=== PATIENT | female | born 1990 | race Caucasian/White ===

== ENCOUNTER 2017-08-20 19:52 | Emergency (ER) | payer OTHER ==
[~2017-08-20] VITALS: Ht 160 cm; Wt 90.6 kg
[~2017-08-20 19:52] MED LIST: JUNEL FE 1/21 TABLET PO; MOTRIN800 MG PO
[2017-08-20 20:20] LABS: MCH 31.3 PG (29.0-34.0); MCHC 34.5 G/DL (30.0-36.0); MCV 90.7 FL (83-99); MEAN PLAT.VOLUME 9.5 uM^3 (9.5-12.4); PLATELET COUNT 195 K/uL (156-360); RBC DIS.WIDTH-CV 12.6 % (11.8-14.6); RBC DIS.WIDTH-SD 41.1 % (39-53); RED BLOOD COUNT 4.19 M/uL (3.80-5.20); WHITE BLOOD COUNT 8.7 K/uL (4.1-10.2)
[2017-08-20 20:28] LABS: CHLORIDE 104 mEq/L (99-109); POTASSIUM 3.7 mEq/L (3.7-5.4); SODIUM 137 mEq/L (136-147)
[2017-08-20 20:31] LABS: GLUCOSE 98 mg/dL (70-99)
[2017-08-20 20:32] LABS: ANION GAP 9 MEQ/L (2-14)
[2017-08-20 20:33] LABS: TOTAL BILIRUBIN 0.2 mg/dL (0.0-1.0)
[2017-08-20 20:34] LABS: ALKALINE PHOSPHATASE 62 IU/L (3-129); GFR ESTIMATE (CALCULATED) > 59 mL/min/
[2017-08-20 20:36] LABS: UREA NITROGEN (BUN) 11 mg/dL (9-23)
[2017-08-20 20:38] LABS: LIPASE 20 U/L (1.0-51.0)
[2017-08-20 20:46] LABS: QUANTITATIVE HCG < 4.0 MIU/ML
[2017-08-20 21:05] LABS: ADD MIUA? YES; BILIRUBIN NEGATIVE; BLOOD SMALL; COLOR YELLOW ((YELLOW)); GLUCOSE (STRIP) NEGATIVE; KETONES NEGATIVE; LEUKOCYTES NEGATIVE; NITRITE NEGATIVE; PROTEIN (STRIP) NEGATIVE; SPECIFIC GRAVITY 1.019 (1.000-1.030); UROBILINOGEN 0.2 MG/DL (0.2-1.0)
[2017-08-20 21:33] LABS: BACTERIA NONE SEEN /HPF; EPITHELIAL CELLS 1+ /HPF; MUCUS TRACE /LPF; WHITE BLOOD CELLS 0-5 /HPF (0-5)
[2017-08-20] MEDS ORDERED: ZOFRAN ODT4 MG PO (22:29)
[2017-08-20] MEDS ORDERED: ULTRAM50 MG PO (22:29)
[2017-08-20 22:42] VITALS: BP 141/90
== END 2017-08-20 22:44 | disposition home or self-care (01) ==
LOC: EXP 19:52 → EME 19:52 → EXP 22:44
PROVIDERS: Nurse Practitioner Family
DX: N83.201 Unspecified ovarian cyst, right side (principal); K50.90 Crohn's disease, unspecified, without complications; Z88.8 Allergy status to other drugs, medicaments and biological substances
CPT/HCPCS: 74176; 76856; 80053; 81003; 83690; 84702; 85027; 93005; 99281; 99284; J2405; J3010; J7030

== ENCOUNTER 2018-02-18 11:19 | Emergency (ER) | payer OTHER ==
[~2018-02-18] VITALS: Ht 160 cm; Wt 98.3 kg
[~2018-02-18 11:19] MED LIST changes: +ULTRAM50 MG PO; +ZOFRAN ODT4 MG PO
[2018-02-18] MEDS ORDERED: PREDNISONE20 MG PO (12:31)
[2018-02-18 12:41] VITALS: BP 127/85
== END 2018-02-18 12:42 | disposition home or self-care (01) ==
LOC: EME 11:19
DX: H68.003 Unspecified Eustachian salpingitis, bilateral (principal); Z88.5 Allergy status to narcotic agent; Z88.6 Allergy status to analgesic agent
CPT/HCPCS: 99281; 99284